=== PATIENT | male | born 1955 | race Two or more races ===

== ENCOUNTER 2018-03-10 10:09 | Inpatient (IN) | payer MEDICAID, OTHER | END 2018-03-11 11:32 | disposition left against medical advice (07) | LOC: ER 10:09 → TELE 15:31 → TELE-WESTW 21:23 | DX: R00.1 Bradycardia, unspecified (principal); E11.9 Type 2 diabetes mellitus without complications; F41.9 Anxiety disorder, unspecified; I10 Essential (primary) hypertension ==